=== PATIENT | female | born 1990 | race Caucasian/White ===

== ENCOUNTER 2017-05-04 23:59 | Inpatient (IN) | payer OTHER ==
[~2017-05-04] VITALS: Ht 139.7 cm; Wt 90.0 kg
[2017-05-05] MEDS ORDERED: VITAFOL-OB+DHA1 EACH PO (00:44)
--- NOTE | 2017-05-06 01:56 | NUR ---
05/06/17 0155 Deirdre Rivera 0147 PT REPORTING NAUSEA MEDICAITON GIVEN PER EMAR.
--- NOTE | 2017-05-07 10:17 | PR ---
[facility] [address] [facility] [place] [address] Signed PP Progress Notes Datetime Report Generated by CPN: 05/07/2017 10:17 SUBJECTIVE: [id number] Pain: Within normal limits Nausea/Vomiting: Denies Flatus: Yes Vital Signs: [id number] Vital Signs: Reviewed; Within Normal Limits EXAM: [id number] Cardiovascular: Normal Respiratory: Normal Abdomen/Uterus: Abnormal Lochia: Normal Vulva/Perineum: Not Done Breasts: Not Done CVA Tenderness: Not Done Extremities: Abnormal Incision: Normal Progress: Normal Exam Comments: Abdomen with active BS. Fundus firm, NT @ U-1. H/H 10.7, WBC 13.5, plat 152k IMPRESSION/PLAN/PROCEDURES: [id number] Impression: Normal progression Plan: Continue present management Procedures: None Progress Notes: Doing well. Signing Physician: Kerline Jiménez MD CC: *Electronically Signed* 05/07/17 1017 KERLINE JIMÉNEZ MD PATIENT NAME: JEAN SALMERON PROGRESS NOTE DATE OF : 86 PHYSICIAN: KERLINE JIMÉNEZ MD RPT #: [id number] REPORT IS CONFIDENTIAL AND NOT TO BE RELEASED WITHOUT AUTHORIZATION
--- NOTE | 2017-05-08 09:59 | PR ---
[facility] [address] [facility] [place], [place] [address] Signed PP Progress Notes Datetime Report Generated by CPN: 05/08/2017 09:59 SUBJECTIVE: [id number] Pain: Within normal limits Nausea/Vomiting: Denies Flatus: Yes Bowel Movement: Yes Vital Signs: [id number] Vital Signs: Reviewed; Within Normal Limits EXAM: [id number] Cardiovascular: Normal Respiratory: Normal Abdomen/Uterus: Abnormal Lochia: Normal Vulva/Perineum: Not Done Breasts: Not Done CVA Tenderness: Not Done Extremities: Normal Incision: Normal Progress: Normal Exam Comments: Fundus firm, NT @ U-1. IMPRESSION/PLAN/PROCEDURES: [id number] Impression: Normal progression Plan: Remove pablito; Discharge Procedures: None Progress Notes: Doing well. She is ready for D/C. Signing Physician: Kerline Jiménez MD CC: *Electronically Signed* 05/08/17 0959 KERLINE JIMÉNEZ MD PATIENT NAME: JEAN SALMERON PROGRESS NOTE DATE OF : 86 PHYSICIAN: KERLINE JIMÉNEZ MD RPT #: [id number] REPORT IS CONFIDENTIAL AND NOT TO BE RELEASED WITHOUT AUTHORIZATION
--- NOTE | 2017-05-24 07:55 | OR ---
[facility] [address] [place], [place] [address] Signed DATE OF OPERATION: 05/06/2017 SURGEON: Kerline Jiménez MD [employer] SUPERVISOR: Dr. Holguin. PREOPERATIVE DIAGNOSES: Post-term , arrest of descent, failed vacuum. POSTOPERATIVE DIAGNOSES: Post-term , arrest of descent, failed vacuum. Delivered. PROCEDURE: Primary section with low segment transverse uterine incision. ANESTHESIA: Epidural ESTIMATED BLOOD LOSS: 750 mL. DRAINS: Joseph catheter. INDICATIONS AND FINDINGS: The patient is a 26-year-old female, 1, para 0, admitted at 41 weeks for induction secondary to postdates. She received Cytotec and had steady change in her cervix and had spontaneous rupture of membranes with clear fluid. She then progressed nicely through her labor, at a slow steady pace. Upon reaching 9 cm, however, it took her several hours to get to complete and at that point, she began pushing. She pushed with good effort, but over the course of almost 3 hours, she was making no further descent. She was prepped for a possible vacuum delivery, but the OR crew was on standby given the likelihood that this would not be successful. The vacuum was applied during two contractions and while the caput descended, the majority of the head did not and this was deemed a failed trial of vacuum and this was discontinued. She was then taken to the operating room for delivery. She was delivered of a little girl from the NANCI position via lower segment transverse uterine incision with Apgars of 8 and 9 and weight of 9 pounds 4 ounces. The uterus, tubes, ovaries and placenta otherwise appeared normal. Electronically Signed By: KERLINE JIMÉNEZ MD 05/24/17 0755 PATIENT NAME: JEAN SALMERON OPERATIVE REPORT DATE OF : 86 PHYSICIAN: KERLINE JIMÉNEZ MD REPORT #: [id number] REPORT IS CONFIDENTIAL AND NOT TO BE RELEASED WITHOUT AUTHORIZATION [facility] [address] [place], [place] [address] Signed PROCEDURE IN DETAIL: The patient was prepped and draped in the supine position. A Pfannenstiel skin incision was made and carried down through the fascia. The incision was extended laterally. The inferior and superior fascial flaps were then created. The muscles were bluntly divided. The peritoneum entered bluntly and the incision extended superiorly and inferiorly. The Sina retractor was placed and the uterine wall was scored at the upper aspect of the peritoneal reflection. The baby was delivered with some difficulty because of the deep pelvic arrest and pushing was required from below as well as from above to bring the baby out. The baby was delivered and handed out to the pediatric staff in attendance. The placenta was then removed manually. The uterus was explored with a lap tape showing no remaining fragments. The edges of the incision were identified and the uterus was closed in two layers using 0 Monocryl. The first layer was a running locking stitch and second was a vertical imbricating stitch. An additional [id number] was required near the patient's left angle for control of bleeding. Following this, the abdomen was copiously irrigated and inspected and bleeding points were controlled with cautery. The incision did appear to be hemostatic. The uterus was initially atonic, which responded to IV Pitocin as well as IM methergine. Following this, the peritoneum was identified after removing the retractor. An ACell graft was laid over the lower segment to aid in healing. The peritoneum was then closed in a running suture of 3-0 Vicryl. The muscles were brought together in the midline with interrupted sutures of 0 Vicryl. This area was then irrigated and bleeding points controlled with cautery as well. ACell powder was sprinkled over the muscles to aid in healing. The fascia was then closed from each angle to the midline with a running suture of 0 Vicryl. The subcutaneous tissue was irrigated and closed with interrupted sutures of 3-0 Vicryl. The skin was closed with pablito. All sponge and needle counts were correct. The patient tolerated the procedure well and was taken to the recovery room in good condition. Kerline Jiménez MD PJW/MODL /[id number] Electronically Signed By: KERLINE JIMÉNEZ MD 05/24/17 0755 PATIENT NAME: JEAN SALMERON OPERATIVE REPORT DATE OF : 86 PHYSICIAN: KERLINE JIMÉNEZ MD REPORT #: [id number] REPORT IS CONFIDENTIAL AND NOT TO BE RELEASED WITHOUT AUTHORIZATION [address] [address] Signed cc: Dr. Holguin Electronically Signed By: KERLINE JIMÉNEZ MD 05/24/17 0755 PATIENT NAME: REXIMELDAJEAN CLAIRE OPERATIVE REPORT DATE OF : 86 PHYSICIAN: KERLINE JIMÉNEZ MD REPORT #: [id number] REPORT IS CONFIDENTIAL AND NOT TO BE RELEASED WITHOUT AUTHORIZATION
== END 2017-05-08 12:00 | disposition home or self-care (01) | DRG 766 ==
LOC: FBC 23:59
PROVIDERS: ADMIT Obstetrics & Gynecology
PROC: 00HU33Z Insertion of Infusion Device into Spinal Canal, Percutaneous Approach (ICD-10-PCS; 2017-05-05)
PROC: 3E0R3BZ Introduction of Anesthetic Agent into Spinal Canal, Percutaneous Approach (ICD-10-PCS; 2017-05-05)
PROC: 10D00Z1 Extraction of Products of Conception, Low, Open Approach (ICD-10-PCS; principal; 2017-05-06 00:30)
DX: O62.1 Secondary uterine inertia (principal); Z3A.41 41 weeks gestation of pregnancy; Z37.0 Single live birth; O66.5 Attempted application of vacuum extractor and forceps; O42.02 Full-term premature rupture of membranes, onset of labor within 24 hours of rupture; O48.1 Prolonged pregnancy
CPT/HCPCS: 01961; 36415; 82803; 85027; C1763; J0690; J2274; J2405; J2540; J2590; J2765; J3010; J7120